=== PATIENT | female | born 1960 | race Two or more races ===

== ENCOUNTER 2018-11-01 21:44 | Emergency (ER) | payer MEDICAID ==
[2018-11-01 22:27] LABS: URINE SOURCE CLEAN C
[2018-11-01 22:29] LABS: % BASOPHILS 0.5 % (0.0-2.0); % EOSINOPHILS 1.2 % (0.0-5.0); % LYMPHOCYTES 28.4 % (20.0-50.0); % NEUTROPHILS 62.9 % (40.0-80.0); BASOPHILE ABSOLUTE 0.1 Th/cumm (0-0.2); EOSINOPHILE ABSOLUTE 0.1 Th/cmm (0.1-0.4); HEMOGLOBIN 14.3 gm/dL (12-16); MEAN CELL VOLUME 86.9 fl (81-100); MEAN CORPUSCULAR HEMOGLOBIN 29.5 pg (27.0-31.0); MEAN CORPUSCULAR HGB CONC 33.9 pg (28.0-36.0); MONOCYTE ABSOLUTE 0.7 Th/cmm (0.3-1.0); NEUTROPHILE ABSOLUTE 6.6 Th/cmm (1.8-8.0); PLATELET COUNT 246 Th/cmm (150-400); RED BLOOD COUNT 4.84 Mil/cmm (3.80-5.10); WHITE BLOOD COUNT 10.5 Th/cmm (4.8-10.8)
[2018-11-01 22:29] LABS: URINE BILIRUBIN SMALL (NEGATIVE); URINE BLOOD LARGE (NEGATIVE); URINE GLUCOSE (UA) NEGATIVE (NEGATIVE); URINE KETONE 15 mg/dL (NEGATIVE); URINE LEUKOCYTE ESTERASE SMALL (NEGATIVE); URINE MICROSCOPIC INDICATED? YES; URINE NITRATE POSITIVE (NEGATIVE); URINE PH 6.5 (4.6 - 8.0); URINE PROTEIN >=300 mg/dL (NEGATIVE)
[2018-11-01 22:37] LABS: URINE COLOR RED
[2018-11-01 22:38] LABS: URINE CLARITY CLOUDY (CLEAR)
[2018-11-01 22:39] LABS: URINE RBC 25-50 /hpf (0-5)
[2018-11-01 22:41] LABS: URINE BACTERIA MODERATE /hpf (NONE SEEN); URINE EPITHELIAL CELLS FEW /lpf (FEW)
[2018-11-01] MEDS ORDERED: Sodium Chloride 0.9% 1,000 ML IV ONE (22:41)
[2018-11-01 22:47] LABS: ALB/GLOB RATIO 1.4 (1.0-1.8); ALBUMIN 4.5 gm/dL (3.7-5.3); ALKALINE PHOSPHATASE 129 U/L (34-104); AMYLASE SERUM 42 U/L (29-103); BILIRUBIN,TOTAL 0.4 mg/dL (0.3-1.0); BUN - UREA NITROGEN 17 mg/dL (7-25); CALCIUM SERUM 9.9 mg/dL (8.6-10.3); CARBON DIOXIDE 24.6 mEq/L (21.0-31.0); CHLORIDE 100 mEq/L (98-107); CREATININE - SERUM 0.6 mg/dL (0.6-1.2); GFR AFRICAN-AMERICAN > 60.0 ml/min (>90); GFR NON AFRICAN-AMERICAN > 60.0 ml/min; LIPASE 27 U/L (11-82); POTASSIUM SERUM 3.6 mEq/L (3.5-5.1); SGOT 24 U/L (13-39); SGPT/ALT 32 U/L (7-52); SODIUM SERUM 135 mEq/L (136-145); TOTAL PROTEIN,SERUM 7.7 gm/dL (6.0-8.3)
[2018-11-01 22:50] LABS: GLUCOSE 288 mg/dL (70-105)
--- NOTE | 2018-11-01 22:50 | ED Physician Chart ---
ED Chief Complaint/HPI - Patient Information Date Seen:: 11/01/18 Time Seen:: 22:44 Chief Complaint:: abd pain hematuria History of Present Illness:: 58 yr old female with one day hx of abd pain and hematuria no fever no nv just pressure in the suprapubic area Allergies:: Allergies Allergy/AdvReac Type Severity Reaction Status Date / Time No Known Allergies Allergy Verified 11/01/18 21:58 Vitals:: Vital Signs - 8 hr 11/01/18 11/01/18 21:44 21:45 Temp 98.8 F 98.8 F HR 94 94 RR 19 18 BP 187/90 187/90 O2 Sat % 98 99 ED Review of Systems - Review of Systems General/Constitutional: No fever Skin: No skin lesions Head: No headache Eyes: No loss of vision ENT: No earache Neck: No neck pain Cardio Vascular: No chest pain Pulmonary: No SOB GI: No nausea, No vomiting, No diarrhea, Pain G/U: Hematuria Endocrine: No polyuria Hematopoietic: No bruising Allergic/Immuno: No urticaria Neurological: No syncope ED Past Medical History - Past Medical History Past Medical History: HTN Family Medical History - Family Member Mother History Unknown: Yes ED Physical Exam - Physical Examination General/Constitutional: No distress Head: Atraumatic Eyes: Lids, conjuctiva normal Skin: No rash ENMT: External ears, nose nl Neck: Nontender Respiratory: Nl effort/Exclusion Cardio Vascular: RRR Other GI comments:: suprabubic area : No CVA tenderness Extremities: No tenderness or effusion Neuro/Psych: Alert/oriented ED Labs/Radiology/EKG Results - Lab Results Results: Laboratory Tests 11/01/18 11/01/18 21:58 22:15 WBC 10.5 RBC 4.84 Hgb 14.3 Hct 42.0 MCV 86.9 MCH 29.5 MCHC Differential 33.9 RDW 12.0 Plt Count 246 MPV 8.4 Neutrophils % 62.9 Lymphocytes % 28.4 Monocytes % 7.0 Eosinophils % 1.2 Basophils % 0.5 Urine Source CLEAN C Urine Color RED Urine Clarity CLOUDY H Urine pH 6.5 Ur Specific [place] 1.020 Urine Protein >=300 Urine Glucose (UA) NEGATIVE Urine Ketones 15 H Urine Blood LARGE H Urine Nitrate POSITIVE H Urine Bilirubin SMALL H Urine Urobilinogen 1.0 Ur Leukocyte Esterase SMALL H Urine RBC 25-50 H Urine WBC 10-25 H Ur Epithelial Cells FEW Urine Bacteria MODERATE H ED Assessment - Assessment General Assessment: abd pain ED Septic Shock - . Is Septic Shock (SBP<90, OR Lactate>4 mmol\L) present?: No - <6hrs of presentation: Vital Signs: Vital Signs - 8 hr 11/01/18 11/01/18 21:44 21:45 Temp 98.8 F 98.8 F HR 94 94 RR 19 18 BP 187/90 187/90 O2 Sat % 98 99 ED Reassessment (Disposition) - Reassessment Reassessment:: abd pain - Diagnosis Diagnosis:: abd pain - Patient Disposition Discharge/Transfer:: Home Condition at Disposition:: Stable
[2018-11-02] MEDS ORDERED: cefTRIAXone 1 GM in Sodium Chloride 0.9% 50 ML IV SCH (00:15)
--- NOTE | 2018-11-02 09:22 | Diagnostic Imaging Report ---
CT scan of the abdomen and pelvis without intravenous contrast History: Pain Total DLP equals 543 CTDI equals 10.6 Axial sections were obtained from the xiphoid process down to the pubic symphysis. The liver demonstrates a normal size and contour. No focal lesions are seen. The spleen appears normal. No abnormalities are seen in the region of the pancreas. The kidneys appear normal bilaterally. 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 No abnormal soft tissue masses. No abnormal fluid collections. Impression: Negative examination
[2018-11-02 18:33] LABS: A1C 11.8
== END 2018-11-02 01:05 | disposition home or self-care (01) ==
LOC: ER 21:44
DX: R10.30 Lower abdominal pain, unspecified (principal); R31.9 Hematuria, unspecified; I10 Essential (primary) hypertension
CPT/HCPCS: 99284; 96365; 96375; 74176; 36415; 36416; 85025; 87086; 81001; 82150; 83036; 81025; 83690; 80053; 87040; J1885; J0696; J7030